=== PATIENT | male | born 1980 | race Hispanic/Latino ===

== ENCOUNTER 2023-08-21 20:45 | Emergency (ER) | payer OTHER ==
[~2023-08-21] VITALS: Ht 167.6 cm; Wt 71.9 kg
[2023-08-21] MEDS ORDERED: KETOROLAC TROMETHAMINE 30 MG/ML VIAL IV ONE (21:00)
[2023-08-21] MEDS ORDERED: CYCLOBENZAPRINE HCL 10 MG TAB PO ONE (21:00)
[2023-08-21 21:01] LABS: BASOPHILS 0.8 % (0-2); EOSINOPHILS 5.3 % (0-6); HEMATOCRIT 44.8 % (35.0-50.0); HEMOGLOBIN 14.7 g/dL (12.0-18.0); LYMPHOCYTES 28.8 % (24-44); MCH 28.5 (27-36); MCHC 32.9 g/dl (30-36); MCV 86.7 fl (81-99); MONOCYTES 4.6 % (0-12); NEUTROPHILS 60.5 % (39-80); PLATELET COUNT 374 K/uL (140-440); RBC 5.16 M/ul (4.3-5.7); RDW 13.3 (10.5-15.0)
[2023-08-21 21:18] LABS: ALBUMIN 3.8 g/dL (3.4-5.0); ANION GAP 9.5 (7-21); BILIRUBIN, TOTAL 0.5 ng/dL (0.2-1.0); BUN/CREATININE RATIO 18.08 (6.0-28.6); CREATININE, SERUM 0.94 mg/dL (0.70-1.30); POTASSIUM 3.5 mmol/L (3.5-5.1); PROTEIN, TOTAL 7.6 g/dL (6.4-8.2)
[2023-08-21] MEDS ORDERED: CELEBREX100 MG PO (21:42)
[2023-08-21] MEDS ORDERED: CYCLOBENZAPRINE10 MG PO (21:42)
[2023-08-21] MEDS ORDERED: CYCLOBENZAPRINE HCL 10 MG HOME.PACK PO ONE (21:45)
[2023-08-21 21:54] VITALS: BP 180/92
== END 2023-08-21 21:54 | disposition home or self-care (01) ==
LOC: ED 20:45
PROVIDERS: Family Medicine
DX: M16.11 Unilateral primary osteoarthritis, right hip (principal)
CPT/HCPCS: 36415; 73502; 80053; 85025; J1885